=== PATIENT | male | born 1950 | race Caucasian/White ===

== ENCOUNTER 2019-04-13 22:37 | Emergency (ER) | payer MEDICARE, BC ==
[2019-04-13] MEDS ORDERED: Promethazine 25 MG/ML SDV IM ONE (23:06)
[2019-04-13] MEDS ORDERED: Morphine 10 MG/ML Syringe IM ONE (23:06)
[2019-04-13] MEDS ORDERED: Morphine 10 MG/ML SDV ONE (23:12)
[2019-04-13] MEDS ORDERED: Morphine 10 MG/ML SDV IM ONE (23:14)
--- NOTE | 2019-04-13 23:14 | EDM.PDOC ---
ED HPI GENERAL MEDICAL PROBLEM - General Chief Complaint: Lower Extremity Injury/Pain Stated Complaint: RT KNEE INJURY Time Seen by Provider: 04/13/19 22:40 Source of Information: Reports: Patient History Limitations: Reports: No Limitations - History of Present Illness INITIAL COMMENTS - FREE TEXT/NARRATIVE: 68-year-old male who was coming from the bathroom at the [employer] and he slipped on water and fell twisting his right knee and right ankle. This occurred approximately 9:45 PM he did not hit his head. There was no loss of consciousness. He had pretty severe pain in his right knee and some pain in his right ankle. Apparently the pain was so severe initially that he had a near syncopal episode with some mild diaphoresis. This has resolved. He presents to the emergency department via ambulance. No neck pain and no back pain. He rates pain as about an 8/10 when he tries to stand and it is sharp and shooting. He has been unable to stand. The pain is worse when he moves it as well. He rates the pain is about a 5/10 now lying down and it is throbbing and aching. He has mild ankle pain. He has a scrape over his right wrist area. There are no other associated signs or symptoms. There are no other modifying factors. Onset: Today (Unfortunately 5 PM) Duration: Constant Location: Reports: Lower Extremity, Right Quality: Reports: Sharp, Throbbing Severity: Moderate Improves with: Reports: Rest Worsens with: Reports: Other (Palpation), Movement Context: Reports: Activity (As above) Associated Symptoms: Reports: Other (Near syncope after the incident occurred.) Treatments SR. DIRECTOR: Reports: Other (see below) (Nothing) Right knee Pain Score (Numeric/FACES): 5 - Related Data Allergies Allergy/AdvReac Type Severity Reaction Status Date / Time No Known Allergies Allergy Verified 04/13/19 22:44 Home Meds: Home Meds Hydrocodone/Acetaminophen [[place] 5-325 Tablet] 1 - 2 tab PO Q6H PRN #14 tablet 04/14/19 [Rx] Walker [Ultra-Light Rollator] 1 each ASDIRECTED #1 each 04/14/19 [Rx] Past Medical History HEENT History: Reports: Glaucoma Cardiovascular History: Reports: Arrhythmia (Paroxysmal atrial fibrillation on no anticoagulation or any other medications) Genitourinary History: Reports: Neurogenic Bladder (He self catheters about 2-3 times a day.), Prostate Disorder (Prostatic hypertrophy) - Past Surgical History HEENT Surgical History: Reports: Tonsillectomy Other Surgical History Comment: Lipoma removed from chest Social & Family History - Tobacco Use Smoking Status *Q: Never Smoker Second Hand Smoke Exposure: No - Caffeine Use Caffeine Use: Reports: Coffee - Alcohol Use Alcohol Use History: Yes Days Per Week of Alcohol Use: 1 Number of Drinks Per Day: 3 Total Drinks Per Week: 3 - Recreational Drug Use Recreational Drug Use: No - Living Situation & Occupation Living situation: Reports: (His is here with him) Occupation: Employed (He is a traveling salesman) Social History Comment: They are from [place], [place]. Review of Systems - Review of Systems Review Of Systems: See Below Constitutional: Reports: Diaphoresis (Mild associated with the pain and has now resolved) Eyes: Reports: No Symptoms Ears: Reports: No Symptoms Nose: Reports: No Symptoms Mouth/Throat: Reports: No Symptoms Respiratory: Reports: No Symptoms Cardiovascular: Reports: No Symptoms GI/Abdominal: Reports: Nausea (Mild nausea associated with this pain earlier, now resolved) Genitourinary: Reports: No Symptoms Musculoskeletal: Reports: Leg Pain (Right lower leg pain), Joint Pain (Right knee and ankle pain) Skin: Reports: Other (Abrasion on right wrist) Neurological: Reports: No Symptoms (Other than the near syncope he had associated with the pain) ED EXAM, GENERAL - Physical Exam Exam: See Below Exam Limited By: No Limitations General Appearance: Alert, WD/WN, No Apparent Distress Eye Exam: Bilateral Eye: EOMI, Normal Inspection, PERRL Ears: Normal External Exam, Hearing Grossly Normal Nose: Normal Inspection, Normal Mucosa Throat/Mouth: Normal Inspection, Normal Oropharynx, Normal Voice, No Airway Compromise Head: Atraumatic, Normocephalic Neck: Normal Inspection, Supple, Non-Tender, Full Range of Motion Respiratory/Chest: No Respiratory Distress, Lungs Clear, Normal Breath Sounds, No Accessory Muscle Use, Chest Non-Tender Cardiovascular: Normal Peripheral Pulses, Regular Rate, Rhythm, No JVD Peripheral Pulses: 2+: Radial (L), Radial (R), Dorsalis Pedis (L), Dorsalis Pedis (R) GI/Abdominal: Normal Bowel Sounds, Soft, Non-Tender, No Organomegaly, No Distention Back Exam: Normal Inspection Extremities: Normal Capillary Refill, Limited Range of Motion (In right knee secondary to pain), Other (Some pain with palpation over right knee, proximal right lower leg and right ankle. There are no effusions in the knee or the ankle. There is no bony crepitus) Neurological: Alert, Oriented, CN II-XII Intact, Normal Cognition, No Motor/ Sensory Deficits Skin Exam: Warm, Dry, Normal Color, Other (Abrasion on right ulnar wrist) Lymphatic: No Adenopathy Course - Vital Signs Last Recorded V/S: Last Vital Signs Temp 36.6 C 04/14/19 00:11 Pulse 70 04/14/19 00:11 Resp 20 04/14/19 00:11 BP 120/65 04/14/19 00:11 Pulse Ox 97 04/14/19 00:11 - Orders/Labs/Meds Orders: Active Orders 24 hr Category Date Time Status Vaccines to be Administered [RC] PER UNIT ROUTINE Care 04/13/19 23:24 Active Ankle Min 3V Rt [CR] Stat Exams 04/13/19 23:03 Taken Knee 1V or 2V Rt [CR] Stat Exams 04/13/19 23:03 Taken Tibia Fibula Rt [CR] Stat Exams 04/13/19 23:03 Taken Meds: Medications Discontinued Medications Generic Name Dose Route Start Last Admin Trade Name Carlos PRN Reason Stop Dose Admin Diphtheria/Tetanus/Acell Pertussis 0.5 ml 04/13/19 23:24 04/14/19 00:03 Adacel IM 04/13/19 23:25 0.5 ml .ONCE ONE Administration Morphine Sulfate 10 mg 04/13/19 23:06 04/13/19 23:32 Morphine IM 04/13/19 23:07 Not Given ONETIME ONE Morphine Sulfate Confirm 04/13/19 23:12 04/13/19 23:33 Morphine Administered 04/13/19 23:13 Not Given Dose 10 mg .ROUTE .STK-MED ONE Morphine Sulfate 10 mg 04/13/19 23:14 04/13/19 23:15 Morphine IM 04/13/19 23:15 10 mg ONETIME ONE Administration Promethazine HCl 25 mg 04/13/19 23:06 04/13/19 23:14 Phenergan IM 04/13/19 23:07 25 mg ONETIME ONE Administration - Radiology Interpretation Free Text/Narrative:: X-ray of right knee shows no evidence of fracture or malalignment per the radiologist. X-ray of right tib-fib shows no evidence of fracture radiologist. X-ray of right ankle shows no fracture per the radiologist. - Re-Assessments/Exams Free Text/Narrative Re-Assessment/Exam: 04/14/19 00:05: The patient's pain has improved after the IM injection of morphine/Phenergan. The x-rays show no fracture or malalignment per my read but am awaiting radiology over read at this point. He is able to bend his knee without any problem and however when he straightens his leg and tries to put weight on his right lower extremity, he has fairly severe pain along the lateral right knee. 04/14/19 00:54: The radiologist read of the x-rays also is no fractures. I will have the nursing staff apply an Fidencio wrap to his knee and we will try him with a walker with toe-touch weightbearing on his right leg. He will need to follow-up with an orthopedic doctor when he gets back home. 04/14/19 01:14: Patient was able to ambulate with walker. He was somewhat woozy. We will allow him to rest here for now but he is stable for discharge. Departure - Departure Time of Disposition: 01:05 Disposition: Home, Self-Care 01 Condition: Good Clinical Impression: Right ankle sprain Qualifiers: Encounter type: initial encounter Involved ligament of ankle: unspecified ligament Qualified Code(s): S93.401A - Sprain of unspecified ligament of right ankle, initial encounter Strain of right knee and leg Qualifiers: Encounter type: initial encounter Qualified Code(s): S86.911A - Strain of unspecified muscle(s) and tendon(s) at lower leg level, right leg, initial encounter - Discharge Information Prescriptions: Hydrocodone/Acetaminophen [[place] 5-325 Tablet] 1 - 2 tab PO Q6H PRN #14 tablet PRN Reason: Moderate to severe pain Walker [Ultra-Light Rollator] 1 each ASDIRECTED #1 each Instructions: Ankle Sprain, [id number], Knee Sprain, Adult, [id number] Referrals: PCP,Not In Area [Primary Care Provider] - Forms: ED Department Discharge Additional Instructions: The x-rays of your right knee, right lower leg and right ankle showed no fracture per the radiologist. There appears to be a ligament strain and you could have a meniscus injury as well. Use the walker with no to toe-touch weightbearing on the right leg. You will need to follow-up with an emergency room specialist when you get back home. Apply ice packs intermittently to the right knee and right ankle for the next few days. Use an Fidencio wrap on your right knee for comfort and support. You may take ibuprofen 800 mg by mouth every 8 hours as needed for pain. Patient as prescribed for more severe pain (hydrocodone 5/ 325). Back to the emergency department for redness, numb/blue/cool right foot or any other concerning sign or symptom. - My Orders Last 24 Hours: My Active Orders 04/13/19 23:03 Ankle Min 3V Rt [CR] Stat Knee 1V or 2V Rt [CR] Stat Tibia Fibula Rt [CR] Stat 04/13/19 23:24 Vaccines to be Administered [RC] PER UNIT ROUTINE - Assessment/Plan Last 24 Hours: My Active Orders 04/13/19 23:03 Ankle Min 3V Rt [CR] Stat Knee 1V or 2V Rt [CR] Stat Tibia Fibula Rt [CR] Stat 04/13/19 23:24 Vaccines to be Administered [RC] PER UNIT ROUTINE
[2019-04-13] MEDS ORDERED: Diphtheria,Pertussis(Acell),Tetanus Vaccine 0.5 ML SDV IM ONE (23:24)
== END 2019-04-14 07:00 | disposition home or self-care (01) ==
LOC: FB.ED 22:37
DX: S93.401A Sprain of unspecified ligament of right ankle, initial encounter (principal); S86.911A Strain of unspecified muscle(s) and tendon(s) at lower leg level, right leg, initial encounter; Z23 Encounter for immunization; Z98.890 Other specified postprocedural states; W01.0XXA Fall on same level from slipping, tripping and stumbling without subsequent striking against object, initial encounter
CPT/HCPCS: 73562-RT; 73590-RT; 73610-RT; 90471; 90715; 96372; 99284-25; J2270; J2550